=== PATIENT | female | born 1970 | race Asian ===

== ENCOUNTER 2017-05-23 10:07 | Outpatient (RCR) | payer BC | END 2017-06-16 | disposition home or self-care (01) | LOC: WCC 10:07 | DX: T86.828 Other complications of skin graft (allograft) (autograft) (principal); Z85.3 Personal history of malignant neoplasm of breast; Z90.11 Acquired absence of right breast and nipple; Z88.2 Allergy status to sulfonamides | CPT/HCPCS: G0277; G0463 ==

== ENCOUNTER 2017-05-23 10:10 | Outpatient (RCR) | payer SELFPAY | END 2017-06-16 | disposition home or self-care (01) | LOC: WCC 10:10 | DX: T86.828 Other complications of skin graft (allograft) (autograft) (principal); Z90.11 Acquired absence of right breast and nipple; Z85.3 Personal history of malignant neoplasm of breast; Z88.2 Allergy status to sulfonamides ==